=== PATIENT | female | born 1950 | race African-American/Black ===

== ENCOUNTER 2017-09-06 07:33 | Day surgery (SDC) | payer MEDICARE, MEDICAID ==
--- NOTE | 2017-09-02 14:59 | Pre-Procedure Note/Attestation ---
Pre-Procedure Note/Attestation Complete Prior to Procedure Planned Procedure: right Procedure Narrative: PHACO WITH IOL Indications for Procedure Pre-Operative Diagnosis: CATARACT Attestation I attest that I discussed the nature of the procedure; its benefits; risks and complications; and alternatives (and the risks and benefits of such alternatives ), prior to the procedure, with the patient (or the patient's legal scheduling representative). I attest that, if there was a reasonable possibility of needing a blood transfusion, the patient (or the patient's legal scheduling representative) was given the [facility] standardized written summary, pursuant to the [place] Blood Safety Act ([place] Health and Safety Code # 1645, as amended). I attest that I re-evaluated the patient just prior to the surgery and that there has been no change in the patient's H&P, except as documented below: CIARA CLEMENTS Sep 02, 2017 14:59
--- NOTE | 2017-09-02 15:01 | Opthalmology H&P ---
Ophthalmology H&P H&P Chief Complaint: decreased vision in right eye HPI Vision Affects Ability to: read, focus/use eyes together, manage personal affairs HPI Narrative BLURRY VISION Exam Visual Acuity: OD; 20/160 OS; 20/30 Tension: OD; 14 OS; 13 Eye Exam: normal OU: external exam, palpebral fissure-width, marginal reflex distance, levator function, corneas, anterior chambers, fundus exam, findings: lens - OD; NS OS; NS Assessment/Plan Diagnosis: (1) Nuclear sclerotic cataract of right eye Treatment Plan: cataract extraction w/ lens implant Goals of Treatment: improvement of vision, enhance quality of life Attestation Attestation The risks and benefits of the surgery as well as alternative procedures were explained to the patient in detail. CIARA CLEMENTS Sep 02, 2017 15:01
[2017-09-03 12:12] LABS: EOSINOPHILS % (AUTO) 0.6 % (0.0-3.0); HEMOGLOBIN 14.3 G/DL (12.0-16.0); LYMPHOCYTES % (AUTO) 38.9 % (20.0-45.0); MEAN CORPUSCULAR VOLUME 92 FL (80-99); MONOCYTES % (AUTO) 6.7 % (1.0-10.0); NEUTROPHILS % (AUTO) 52.8 % (45.0-75.0); PLATELET COUNT 331 K/UL (150-450); RED BLOOD COUNT 4.66 M/UL (4.20-5.40); RED CELL DISTRIBUTION WIDTH 13.1 % (11.6-14.8); WHITE BLOOD COUNT 7.7 K/UL (4.8-10.8)
[2017-09-03 12:26] LABS: ALANINE AMINOTRANSFERASE 26 U/L (12-78); ALBUMIN 3.7 G/DL (3.4-5.0); ALBUMIN/GLOBULIN RATIO 0.9 (1.0-2.7); ALKALINE PHOSPHATASE 81 U/L (46-116); ANION GAP 8 mmol/L (5-15); ASPARTATE AMINO TRANSFERASE 18 U/L (15-37); BILIRUBIN,TOTAL 0.3 MG/DL (0.2-1.0); BLOOD UREA NITROGEN 10 mg/dL (7-18); CALCIUM 8.8 MG/DL (8.5-10.1); CARBON DIOXIDE 28 MMOL/L (21-32); CHLORIDE 107 MMOL/L (98-107); CREATININE 0.8 MG/DL (0.55-1.30); POTASSIUM 4.2 MMOL/L (3.5-5.1); SODIUM 143 MMOL/L (136-145)
[2017-09-06] VITALS (8 sets, daily range): BP systolic 106–128; BP diastolic 58–70
[~2017-09-06] VITALS: Ht 161.3 cm; Wt 65.8 kg
[~2017-09-06 07:33] MED LIST: Akten 3.5% 1ml Btl RIGHT EYE ONE; BENADRYL ALLERG25 M1 PO; FLONASE ALLERG9.9 ML NS; FLUOCINONIDE-E15 G1 TP; LEVOCETIRIZINE D5 MG ORAL; MONTELUKAST SOD10 MG ORAL; MULTIVITAMINS1 EAC2 ORAL; PROBIOTIC1 EAC6 PO; Proparacaine 0.5% Opth Soln 15ml RIGHT EYE ONE; Tetracaine 0.5% Opth 4ml Soln RIGHT EYE ONE; VITAMIN B COMP1 EAC2 ORAL; VITAMIN C500 M1 ORAL; VITAMIN D1000 UNI1 ORAL
[2017-09-06] MEDS ORDERED: Midazolam 2mg/2ml Inj ONE (07:34)
[2017-09-06] MEDS ORDERED: Sterile Water Irrig 1000ml IRRIG ONE (07:34)
[2017-09-06] MEDS ORDERED: Alfentanil 2ml Inj ONE (07:34)
[2017-09-06] MEDS ORDERED: NS Irrig 1000ml ONE (07:34)
[2017-09-06] MEDS ORDERED: LR 1000ml ONE (07:34)
[2017-09-06] MEDS: Tropicamide 1% Opth 15ml Soln RIGHT EYE SCH ×3 (11:10→11:43)
[2017-09-06] MEDS: Cyclopentolate 1% Opth Sol 2ml RIGHT EYE SCH ×3 (11:11→11:43)
[2017-09-06] MEDS: Phenylephrine 10% Opth Soln 5ml RIGHT EYE SCH ×3 (11:13→11:43)
[2017-09-06] MEDS: Tobramycin Op Soln 0.3% 5ml RIGHT EYE SCH ×3 (11:13→11:44)
[2017-09-06] MEDS ORDERED: BSS 500ml btl ONE (12:27)
[2017-09-06] MEDS ORDERED: Pilocarpine 2% Opth 15ml Soln ONE (12:27)
[2017-09-06] MEDS ORDERED: BSS 15ml BTL ONE (12:28)
[2017-09-06] MEDS ORDERED: EPINEPHrine 1mg/1ml Amp ONE (12:28)
[2017-09-06] MEDS ORDERED: LR 1000ml 1,000 ML IVLG SCH (13:18)
--- NOTE | 2017-09-06 13:21 | Immediate Post-Op Evaluation ---
Immediate Post-Op Evalulation Immediate Post-Op Evalulation Procedure: Extraction of cataract with IOL right eye Date of Evaluation: Sep 06, 2017 Time of Evaluation: 13:22 IV Fluids: 500 Blood Pressure Systolic: 109 Blood Pressure Diastolic: 69 Pulse Rate: 60 Respiratory Rate: 16 O2 Sat by Pulse Oximetry: 96 Temperature (Fahrenheit): 97.3 Pain Score (1-10): 0 Nausea: No Vomiting: No Complications No complication Patient Status: awake, patent, none Hydration Status: adequate Drug: None TERRY CLEMENTE M.D. Sep 06, 2017 13:21
--- NOTE | 2017-09-06 13:25 | Anethesia Preoperative Eval ---
Anesthesia Pre-op PMH/ROS General Date of Evaluation: Sep 06, 2017 Time of Evaluation: 12:21 Anesthesiologist: Samantha ASA Score: ASA 2 Mallampati Score Class I : Soft palate, uvula, fauces, pillars visible Class II: Soft palate, uvula, fauces visible Class III: Soft palate, base of uvula visible Class IV: Only hard plate visible Mallampati Classification: Class II Surgeon: Ruth Diagnosis: Cataract right eye Surgical Procedure: Extraction of cataract with IOL right eye Family History: no anesthesia problems Allergies: Coded Allergies: PREDNISONE (Verified Allergy, Intermediate, swelling in the face, 09/06/17) Medications: see eMAR Past Medical History Cardiovascular: Reports: HTN, Denies: CAD, [place], valve dz, arrhythmia, other Endocrine: Denies: DM, hypothyroidism, steroids, other HEENT: Reports: cataract (R), Denies: cataract (L), glaucoma, [place] (L), [place] (R), other Hematology/Immune: Denies: anemia, DVT, bleeding disorder, other Musculoskeletal/Integumentary: Denies: OA, RA, DJD, DDD, edema, other PMH Narrative: HTN Anesthesia Pre-op Phys. Exam Physician Exam Last Vital Signs Date Time Temp Pulse Resp B/P (MAP) Pulse Ox O2 Delivery O2 Flow Rate FiO2 09/06/17 11:20 97.1 62 18 128/70 98 Room Air 97.1 Constitutional: NAD Neurologic: CN 2-12 intact Cardiovascular: RRR, no M/R/G Respiratory: CTA Gastrointestinal: S/NT/ND Airway Exam Mallampati Score: Class II MO: full ROM: full Teeth: intact Anesthesia Pre-op A/P Studies Pre-op Studies: EKG - SR Risk Assessment & Plan Assessment: Class 2 female for Cataract extraction Plan: MAC Status Change Before Surgery: No Pre-Antibiotics Drug: None TERRY CLEMENTE M.D. Sep 06, 2017 13:25
--- NOTE | 2017-09-06 13:27 | 48 Hour Post Anesthesia Eval ---
Post Anesthesia Evaluation Procedure: Extraction of cataract with IOL right eye Date of Evaluation: Sep 06, 2017 Time of Evaluation: 13:40 Blood Pressure Systolic: 113 0: 58 Pulse Rate: 62 Respiratory Rate: 17 O2 Sat by Pulse Oximetry: 99 Airway: patent Nausea: No Vomiting: No Pain Intensity: 0 Hydration Status: adequate Cardiopulmonary Status: Stable Mental Status/LOC: patient returned to baseline Follow-up Care/Observations: As per surgery Post-Anesthesia Complications: No anesthetic complication Follow-up care needed: N/A TERRY CLEMENTE M.D. Sep 06, 2017 13:27
[2017-09-06] MEDS ORDERED: LR 1000ml 1,000 ML IV SCH (13:30)
[2017-09-06] MEDS ORDERED: fentaNYL 100 mcg/2 mL IV PRN (13:30)
--- NOTE | 2017-09-06 13:47 | Brief Operative Note ---
Immediate Post Operative Note Operative Note Chief Complaint: blurry vision Pre-op Diagnosis: CATARACT, OD Procedure: phaco with IOL, OD Post-op Diagnosis: Pseudophakia Post-op Diagnosis: same as pre-op Findings: consistent w/pre-op dx studies Surgeon: Ruth Anesthesiologist: Samantha Anesthesia: MAC Specimen: none Complications: none Condition: stable Fluids: LR Estimated Blood Loss: none Drains: none Implant(s) used?: Yes CIARA CLEMENTS Sep 06, 2017 13:46
--- NOTE | 2017-09-06 13:47 | Operative Note - PDOC ---
Operative Note Operative Note Date of Operation/Procedure: Sep 06, 2017 Chief Complaint: blurry vision Pre-op Diagnosis: CATARACT, OD Procedure: phaco with IOL, OD Post-op Diagnosis: Pseudophakia Post-op Diagnosis: same as pre-op Operative Findings: consistent w/pre-op dx studies Surgeon: Ruth Anesthesiologist: Samantha Anesthesia: MAC Specimen: none Complications: none Condition: stable Fluids: LR Estimated Blood Loss: none Drains: none Implant(s) used?: Yes Indications for Procedure cataract Description of Procedure This patient has been complaining visually significant cataract in the affected eye with the best corrected visual acuity under moderate glare conditions worse. The patient complains of difficulties with glare in performing activities of daily living and wants to manage personal affairs with comfort and accuracy and see well enough to move with safety at home and outdoors. The risks, benefits and alternatives of the procedure were discussed with the patient in the office prior to scheduling surgery. All questions from the patient were answered after the surgical procedure was explained in detail. The risks of the procedure as explained to the patient include, but are not limited to, pain, infection, bleeding, loss of vision, retinal detachment, need for further surgery, loss of lens nucleus, double vision, etc. Alternative procedures were discussed which include, to do nothing or seek a second opinion. Informed consent for this procedure was obtained from the patient. The patient was referred to a primary care physician for a cardiopulmonary clearance prior to surgery, after proper evaluation was done patient was properly scheduled for outpatient surgery. The patient was brought to the operating room where the anesthesiologist established I.V. lines and cardiac monitoring leads. Mild intravenous sedation was administered. The patient was then prepared with a 5% solution of povidone- iodine to the conjunctival fornix and lashes, and a 10% solution of povidone- iodine to the lids and periorbital skin. The patient was then draped in the usual sterile fashion. A lid speculum was then placed in the operative eye. A keratome blade was then used to create a biplanar incision into the anterior chamber. Viscoelastics was then instilled into the anterior chamber. A capsulorrhexis was then fashioned with an utrata forceps followed by a BSS and a cannula were then used to hydrodissect and hydro delineate the lens. Paracentesis incision was made at 3 o'clock with sharp blade. The phacoemulsification unit, after being properly adjusted and tested, was then used to emulsify the nucleusthen residual cortical material was aspirated with the irrigation and aspiration unit. Healon was then instilled into the anterior chamber. The corneal wound was then enlarged to the size of the optic with the alisha keratome blade. The intraocular lens was then inspected for right power and size and thought to be satisfactory. Then the lens was gently placed in the capsular bag. Positioning within the capsular bag was confirmed by direct visualization. Optic centration was accomplished with a [place] hook. Viscoelastics was removed from the anterior chamber using the irrigation and aspiration unit. The corneal wound was then tested for leaks and none were found. The lid speculum were then removed. Sponge and needle counts were correct. An eye patch and shield were placed over the operative eye. The patient was taken to the recovery room in stable condition. There were no complications. The patient tolerated the procedure well. The patient was then transferred to the ambulatory surgery unit in stable and satisfactory condition , was given detailed written instructions and asked to follow up in the office the next day. J Luis PARKS JAMES Sep 06, 2017 13:47
[2017-09-06] MEDS ORDERED: Povidone-Iodine 5% opth solution ONE (15:22)
[2017-09-06] MEDS ORDERED: Sodium Hyaluronate 14 mg/ml 0.85ml ONE (15:22)
--- NOTE | 2017-09-07 18:49 | Cardiology Report ---
APPROVED REPORT EKG Measurement Heart [id number] NC [id number] Normal sinus rhythm Normal ECG
== END 2017-09-06 14:40 | disposition home or self-care (01) ==
LOC: SUR 07:33
DX: H25.11 Age-related nuclear cataract, right eye (principal); K21.9 Gastro-esophageal reflux disease without esophagitis; I10 Essential (primary) hypertension; Z88.8 Allergy status to other drugs, medicaments and biological substances
CPT/HCPCS: 36415; 66984; 80053; 85025; 85610; 85730; 93005; J0171; J2250; J3370; J3490; J7120; V2632; 94003; 94150